=== PATIENT | female | born 2000 | race Hispanic/Latino ===

== ENCOUNTER 2024-10-14 16:39 | Emergency (ER) | payer SELFPAY ==
[~2024-10-14] VITALS: Ht 152.4 cm; Wt 78.9 kg
[2024-10-14] MEDS ORDERED: ondanSETRON 4MG INJ IVP PRN (17:30)
[2024-10-14 17:41] LABS: BASOPHILS # (AUTO) 0.06 K/uL (0.00-0.20); BASOPHILS % (AUTO) 0.4 % (0.0-5.0); EOSINOPHILS # (AUTO) 0.25 K/uL (0.00-0.70); EOSINOPHILS % (AUTO) 1.7 % (0.0-8.0); HEMATOCRIT 38.3 % (36-48); IMMATURE GRANULOCYTE ABSOLUTE 0.05 K/uL (0-1); LYMPHOCYTES # (AUTO) 1.9 K/uL (1.0-4.8); MEAN CORPUSCULAR HGB CONC 31.6 g/dL (32.0-36.0); MEAN CORPUSCULAR VOLUME 79.1 fL (79-99); MONOCYTES # (AUTO) 0.5 K/uL (0.1-1.0); MONOCYTES % (AUTO) 3.6 % (3.0-13.0); NEUTROPHILS # (AUTO) 11.6 K/uL (1.8-7.7); PLATELET COUNT (AUTO) 327 K/uL (130-400); RED BLOOD CELL COUNT(AUTO) 4.84 MIL/uL (4.00-5.50); WHITE BLOOD COUNT (AUTO) 14.3 K/uL (4.8-10.8)
--- NOTE | 2024-10-14 17:50 | ERN ---
General Chief Complaint: Abdominal pain and vomiting Stated Complaint: ABD PAIN, VOMITTING Time Seen by MD: 16:45 Source: patient History of Present Illness Initial Comments The patient is a 24-year-old female presenting to the ED with complaints of ab dominal pain, nausea, vomiting and diarrhea. The symptoms began approximately 2 weeks ago with progressively worsening. Two weeks ago the patient developed abdominal pain nausea vomiting. She went to the ED in [place] where imaging revealed gallstones. And subsided with the pain medication. Subsequently she had a subsequent visit at [facility] in [facility] where she was prescribed famotidine 20 mg with no significant improvement. Symptoms of persistent worsened prompting today's visit. She has severe abdominal pain localized to the right upper quadrant and epigastrium worsens with palpitation. Vomiting is yellowish-green in color with multiple episodes. Diarrhea is watery in consistency. Patient has associated nausea vomiting weakness chills fatigue and reduced appetite. Patient is sexually active in last 1 month. Timing/Duration: 1 week, getting worse Severity: severe Associated Symptoms: loss of appetite, malaise, nausea/vomiting, weakness Allergies: Coded Allergies: No Known Allergies (Unverified Allergy, Unknown, 10/14/24) ROS Dictation CONSTITUTIONAL: NO FEVER, NO DIAPHORESIS, NO MALAISE. Complains of fatigue weakness and chills HEAD/FACE: NO SIGNS OF TRAUMA. EENT: NO EYE PAIN, NO BLURRED VISION, NO TEARING, NO DOUBLE VISION, NO EAR PAIN, NO EAR DISCHARGE, NO NOSE PAIN, NO NASAL CONGESTION, NO THROAT PAIN, NO THROAT SWELLING, NO MOUTH PAIN. RESPIRATORY: NO COUGH, NO ORTHOPNEA, NO SOB, NO STRIDOR, NO WHEEZING. CARDIOVASCULAR: NO CHEST PAIN, NO EDEMA, NO PALPITATIONS, NO SYNCOPE. GASTROINTESTINAL/ABDOMINAL: Abdominal pain right upper quadrant, epigastrium, nausea vomiting which is yellow-green, diarrhea watery and reduced appetite. GENITOURINARY: NO ABNORMAL DISCHARGE, NO DYSURIA, NO FREQUENT URINATION, NO HEMATURIA. NO COMPLAINTS OF PAIN IN THE GENITALS. MUSCULOSKELETAL: NO BACK PAIN, NO GOUT, NO JOINT PAIN, NO JOINT SWELLING, NO MUSCLE PAIN, NO MUSCLE STIFFNESS, NO NECK PAIN. INTEGUMENTARY: CHANGE IN COLOR, NO CHANGE IN HAIR/NAILS, NO DRYNESS, NO LES ION, NO LUMPS, PAINFUL BLISTERS, RASH ON THE LEFT MEDIAL LEG AND WORSENING SWELLING NEUROLOGICAL/PSYCH: NO ANXIETY, NOT DEPRESSED, NO EMOTIONAL PROBLEM, NO HEADACHE, NO NUMBNESS, NO PRE-EXISTING DEFICIT, NO HISTORY OF SEIZURES, NO TREMORS, NO WEAKNESS. HEMATOLOGIC/LYMPHATIC: NOT ANEMIC, NO HISTORY OF BLOOD CLOTS, NO APPARENT BLEEDING, NO BRUISING, GLANDS NOT SWOLLEN. ALL SYSTEMS NEGATIVE, EXCEPT NOTED. Physical Exam Physical Exam Dictation VITAL SIGNS: REVIEWED. GENERAL APPEARANCE: ALERT, ORIENTED X3, OBESE. Appears ill and fatigued HEAD AND FACE: NON-TRAUMATIC. EYES: PERRL, PINK CONJUNCTIVAS, EYELID NO TRAUMA, ANTERIOR CHAMBER CLEAR. EARS: PINNAS INTACT AND NO SIGNS OF TRAUMA OR ERYTHEMA. EAR CANALS CLEAR AND NO DISCHARGE. TMS NO ERYTHEMA. NOSE: NO DISCHARGE, NO BLEEDING. OROPHARYNX: MOUTH NORMAL, TEETH NO CARIES, TONGUE PINK. PHARYNX CLEAR, NO ERYTHEMA. TONSILS NO EXUDATES, NO ABSCESSES NOTED. MUCOUS MEMBRANE MOIST. NECK: SUPPLE, NON-TENDER, NO THYROMEGALY, NO MASSES, NO JVD, NO BRUITS. BREAST: DEFERRED. CHEST: NO TENDERNESS, NO CREPITUS, NO PARADOXICAL MOVEMENT, NO RETRACTIONS. LUNGS: CLEAR, WELL-VENTILATED, SYMMETRIC, NO RALES, NO WHEEZING, NO RHONCHI, NO STRIDOR, GOOD BREATH SOUNDS BILATERALLY. HEART: REGULAR RATE, REGULAR RHYTHM, NO MURMUR, NO GALLOPS. VASCULAR: NO PERIPHERAL EDEMA. ABDOMEN: POSITIVE BOWEL SOUNDS, NONDISTENDED, NO GUARDING, NO MASSES NO HEPATOMEGALY, NO SPLENOMEGALY NO HERNIAS. Right upper quadrant and epigastrium severely tender to palpitation, no distention, bowel sounds present, Gomez sign present RECTAL: DEFERRED. GENITAL: DEFERRED. NEUROLOGICAL: NORMAL SPEECH, GROSS MOTOR FUNCTION INTACT, GROSS SENSORY FUNCTION INTACT. MUSCULOSKELETAL: NECK NONTENDER, FULL RANGE OF MOTION, BACK NONTENDER, FULL RANGE OF MOTION. EXTREMITIES: NONTENDER, FULL RANGE OF MOTION. SKIN: COLOR PINK, DRY, NO TURGOR, NO LACERATIONS, NO ABRASIONS, NO CONTUSIONS, . LYMPHATICS: DEFERRED. Results Laboratory and Microbiology Lab and Micro Result Laboratory Tests Test 10/14/24 17:35 White Blood Count 14.3 K/uL (4.8-10.8) H Red Blood Count 4.84 MIL/uL (4.00-5.50) Hemoglobin 12.1 g/dL (12.0-16.0) Hematocrit 38.3 % (36-48) Mean Corpuscular Volume 79.1 fL (79-99) Mean Corpuscular Hemoglobin 25.0 pg (27.0-33.0) L Mean Corpuscular Hemoglobin Concent 31.6 g/dL (32.0-36.0) L Red Cell Distribution Width 17.0 % (11.0-15.5) H Platelet Count 327 K/uL (130-400) Mean Platelet Volume 11.8 fL (7.5-10.5) H Immature Granulocyte % (Auto) 0.3 % (0-1) Neutrophils (%) (Auto) 81.0 % (40.0-77.0) H Lymphocytes (%) (Auto) 13.0 % (21.0-51.0) L Monocytes (%) (Auto) 3.6 % (3.0-13.0) Eosinophils (%) (Auto) 1.7 % (0.0-8.0) Basophils (%) (Auto) 0.4 % (0.0-5.0) Neutrophils # (Auto) 11.6 K/uL (1.8-7.7) H Lymphocytes # (Auto) 1.9 K/uL (1.0-4.8) Monocytes # (Auto) 0.5 K/uL (0.1-1.0) Eosinophils # (Auto) 0.25 K/uL (0.00-0.70) Basophils # (Auto) 0.06 K/uL (0.00-0.20) Absolute Immature Granulocyte (auto 0.05 K/uL (0-1) Nucleated Red Blood Cells 0.0 % (0.0-0.19) Red Blood Cell Morphology See comments Sodium Level 135 mmol/L (136-145) L Potassium Level 3.6 mmol/L (3.5-5.1) Chloride Level 98 mmol/L (101-111) L Carbon Dioxide Level 29 mmol/L (21-32) Blood Urea Nitrogen 9 mg/dL (7-18) Creatinine 0.7 mg/dL (0.5-1.0) Glomerular Filtration Rate Calc 123 mL/min (>90) Random Glucose 92 mg/dL (70-105) Total Calcium 9.0 mg/dL (8.5-10.1) Total Bilirubin 0.8 mg/dL (0.2-1.0) Aspartate Amino Transf (AST/SGOT) 66 U/L (10-37) H Alanine Aminotransferase (ALT/SGPT) 58 U/L (12-78) Alkaline Phosphatase 154 U/L (50-136) H Total Protein 8.2 g/dL (6.0-8.3) Albumin 4.0 g/dL (3.5-5.0) Lipase 24 U/L (16-77) Serum Test, Qualitative NEGATIVE (NEGATIVE) Labs Reviewed?: Yes EKG/XRAY/US/CT/MRI X-RAY Comment PATIENT: INGA ROMERO MR#: [id number] : 2000 SEX: F AGE: 24 LOCATION: [facility] ORDER 26 STATUS: [facility] REPORT#: [id number] SERVICE [id number] REASON: Abdominal obstruction rule out ORDERING PHYSICIAN: CHARAN SANCHEZ MD PROCEDURE: ABD 1VW - ABD 1VW ABDOMEN SINGLE VIEW INDICATION: Pain COMPARISON: None FINDINGS: Supine view only No abnormal bowel dilation noted. No abnormal calcifications identified. No gross free air detected. IMPRESSION: No evidence for bowel obstruction. DICTATED BY: MAURIZIO ROMANO MD DATE: 10/14/241848 ELECTRONICALLY SIGNED BY: MAURIZIO ROMANO MD DATE: 10/14/24 185 Ultrasound Comment REASON: Acute cholecystitis ORDERING PHYSICIAN: CHARAN SANCHEZ MD PROCEDURE: ABDRUQLTD - US ABDOMINAL RUQ\LTD ULTRASOUND ABDOMEN LIMITED INDICATION: Right upper abdominal pain COMPARISON: None FINDINGS: The liver is normal in size and echogenicity; no focal lesion demonstrated. The common bile duct diameter measures 6.0 mm. Echogenic shadowing stone within the gallbladder lumen without associated pericholecystic fluid. No sonographic Gomez's sign elicited by the ultrasound straw hat brim cutter operator. Wall thickness measures 3.0 mm. Visible portions of the pancreas appear normal. Tail is obscured by overlying bowel gas. The right kidney measures 8.9 x 4.2 x 4.2 cm,and is normal in echogenicity, without evidence for hydronephrosis.No shadowing stones demonstrated. No free fluid demonstrated. IMPRESSION: Cholelithiasis without cholecystitis. DICTATED BY: MAURIZIO ROMANO MD DATE: 10/14/241838 ELECTRONICALLY SIGNED BY: MAURIZIO ROMANO MD DATE: 10/14/241842 [facility] MDM: DIFFERENTIAL DIAGNOSIS: Acute cholecystitis, gallstone pancreatitis, acute hepatitis, peptic ulcer disease, gastroenteritis, choledocholithiasis, ecotopic RATIONALE: TESTS CONSIDERED AND ORDERED SECONDARY TO SHARED DECISION MAKING INCLUDE: LABS, ECG AND RADIOLOGY PREVIOUS OUTSIDE RECORDS REVIEWED: OLD ER VISITS. RISK OF COMPLICATION AND/OR MORBIDITY OR MORTALITY OF PATIENT MANAGEMENT: NONE MEDICATIONS-PER MEDICATION RECONCILIATION NEED FOR HOSPITALIZATION: PATIENT DOES MEET CRITERIA FOR HOSPITALIZATION. NEED FOR EMERGENCY MAJOR/MINOR SURGERY: NO THERE ARE NO SOCIAL CONCERNS WITH THIS PATIENT. PRESCRIPTION DRUG MANAGEMENT PRESCRIPTIONS WILL INCLUDE SYMPTOMATIC CARE PATIENT'S PRIOR EXTERNAL MEDICAL RECORDS FROM OTHER ER VISITS WERE REVIEWED BY ME INDICATED. PRIOR TESTING AND RESULTS FROM PREVIOUS VISITS WERE REVIEWED. PRIOR TESTS WERE TAKEN INTO ACCOUNT WITH MEDICAL DECISION MAKING AND RESOURCE UTILIZATION, INDEPENDENT HISTORIAN/HISTORIANS WERE USED TO OBTAIN COMPLETE MEDICAL HISTORY. I INDEPENDENTLY INTERPRETED THE TEST THAT WERE PERFORMED, RESULTS WERE REVIEWED BY ME AND CONSIDERED FINDINGS ON RADIOLOGY IF ORDERED. MEDICAL MANAGEMENT AND EXAMINATION INTERPRETATION DISCUSSIONS WERE HAD BY ME WITH OTHER QUALIFIED HEALTHCARE PROFESSIONALS INDICATED FOR THE PATIENT'S CARE. Patient has a history of gallstones with worsening symptoms, severe RUQ tenderness and persistent vomiting. Acute cholecystitis is a primary concern given the RUQ tenderness, nausea and prior imaging showing gallstones. Need to rule out gallstone pancreatitis and choledocholithiasis by LFTs lipase and imaging. Given nausea vomiting diarrhea dehydration is a concern so IV fluids are being initiated. Ultrasound abdomen is necessary to assess gallbladder inflammation, wall thickening and ductal dilation. Surgical consultation warranted if findings suggest cholecystitis. LAB FINDINGS SUGGEST AN INFLAMMATORY PROCESS LIKELY ACUTE CHOLECYSTITIS WITH A WBC COUNT OF 14.3 INCREASED SUGGESTIVE OF INFECTION OR INFLAMMATION AND AST A OF 66 HIGH AND ALP OF 144 HIGH SUGGESTIVE OF HEPATOBILIARY INVOLVEMENT, POSSIBLY SECONDARY TO GALLSTONES CAUSING BILIARY OBSTRUCTION OR CHOLESTASIS. GIVEN THE ELEVATED WBC COUNT TRANSAMINITIS AND ALP ELEVATION ACUTE CHOLECYSTITIS REMAINS THE PRIMARY CONCERN, WITH THE POSSIBILITY OF EARLY CHOLANGITIS OR GALLSTONE PANCREATITIS. WAITING FOR HER ABDOMINAL ULTRASOUND RESULTS. ED Course Orders Procedure Category Date Status Time Cbc With Differential LAB 10/14/24 Complete 17:18 Comprehensive LAB 10/14/24 Complete Metabolic Panel 17:18 Lipase LAB 10/14/24 Complete 17:18 Urinalysis Profile LAB 10/14/24 Logged 17:18 ,Urine Test LAB 10/14/24 Logged 17:18 Testing, LAB 10/14/24 Complete Serum Hcg 17:18 Us Abdominal Ruq\Ltd US 10/14/24 Resulted 17:18 Ondansetron 4mg Inj PHA 10/14/24 In Process (Zofran 4mg Inj) 17:30 Abd 1vw RAD 10/14/24 Resulted 17:18 0.9%Nacl 1000ml (Ns PHA 10/14/24 In Process 1000ml) 17:30 Current Medications Medications (Trade) Dose Ordered Sig/Stefanie Route PRN Reason Start Time Stop Time Status Last Admin Dose Admin Ondansetron HCl (zoFRAN 4MG INJ) 4 mg Q6H PRN IVP NAUSEA/VOMITING 10/14/24 17:30 10/17/24 12:00 Sodium Chloride 1,000 ml @ 75 mls/hr [id number] IV 10/14/24 17:30 11/13/24 17:29 Vital Signs Date Time Temp Pulse Resp B/P (MAP) Pulse Ox O2 Delivery O2 Flow Rate FiO2 10/14/24 18:03 98.1 89 20 117/76 99 Room Air 0 DX & DISP Disposition: Discharge Departure Impression: Primary Impression: Biliary colic symptom Additional Impression: Cholelithiasis Condition: Stable Scripts Dicyclomine HCl (Bentyl) 20 Mg Tab 1 TAB PO TID for irritable bowel symptoms for 10 Days, #30 TAB 0 Refills Prov: GIRISH RAIN MD 10/14/24 Levofloxacin (Levofloxacin) 500 Mg Tablet 1 TAB PO DAILY for 10 Days, #10 TAB 0 Refills Prov: GIRISH RAIN MD 10/14/24 Additional Instructions: Patient and the caregiver have been informed of all the diagnostic tests and the imaging conducted during the today's visit to the emergency room and has verbalized understanding of the results I have personally reviewed and interpreted all diagnostic exams performed here in the ER today as well as the vital signs documented by the nursing staff. The patient is now being discharged to home and should follow up with the primary care physician or the specialist as directed by the ER staff. Follow-up with primary care provider in 1 to 2 days. Take medications as directed here in the emergency room. Okay to continue home medications unless otherwise discussed during your visit in the emergency room today. Return to your nearest emergency room if symptoms worsen or if there is no improvement. Call 911 if you need immediate assistance. Take Tylenol or Motrin [id number] as needed and if no contraindications are present. Increase or al hydration. A wound culture or urine culture was ordered here in the emergency room department please follow-up with primary care provider and advise them to get repeat ports from our facility. If you had any Shankar wrap/splints that were applied here, please do not remove them until you see your primary care or specialty. Referrals: SELF,REFERRAL (PCP) ATTESTATION BY PHYSICIAN I have seen and examined the patient. I reviewed the documentation, medical decision making, and treatment plan as noted by the mid-level provider above. I agree with the findings and plan of care. Lori Roberts MD, RAGHAVA R MD Oct 14, 2024 17:50 GIRISH RAIN MD Oct 14, 2024 20:17
[2024-10-14 17:54] LABS: CREATININE 0.7 mg/dL (0.5-1.0); POTASSIUM 3.6 mmol/L (3.5-5.1)
[2024-10-14 17:58] LABS: BILIRUBIN,TOTAL 0.8 mg/dL (0.2-1.0); TOTAL PROTEIN, SERUM 8.2 g/dL (6.0-8.3)
--- NOTE | 2024-10-14 18:43 | HMCIMG ---
ULTRASOUND ABDOMEN LIMITED INDICATION: Right upper abdominal pain COMPARISON: None FINDINGS: The liver is normal in size and echogenicity; no focal lesion demonstrated. The common bile duct diameter measures 6.0 mm. Echogenic shadowing stone within the gallbladder lumen without associated pericholecystic fluid. No sonographic Gomez's sign elicited by the ultrasound ampoule washing machine operator. Wall thickness measures 3.0 mm. Visible portions of the pancreas appear normal. Tail is obscured by overlying bowel gas. The right kidney measures 8.9 x 4.2 x 4.2 cm,and is normal in echogenicity, without evidence for hydronephrosis.No shadowing stones demonstrated. No free fluid demonstrated. IMPRESSION: Cholelithiasis without cholecystitis.
--- NOTE | 2024-10-14 18:55 | HMCIMG ---
ABDOMEN SINGLE VIEW INDICATION: Pain COMPARISON: None FINDINGS: Supine view only No abnormal bowel dilation noted. No abnormal calcifications identified. No gross free air detected. IMPRESSION: No evidence for bowel obstruction.
[2024-10-14] MEDS ORDERED: LEVO-70 PO (20:50)
[2024-10-14] MEDS ORDERED: DICY20TA2 PO (20:50)
[2024-10-14] MEDS: 0.9%NACL 1000ML 1,000 ML IV SCH (21:10)
[2024-10-14 21:23] VITALS: BP 131/79; PULSE 85; RESP 20; TEMP 98.6; O2SAT 99
== END 2024-10-14 21:23 | disposition home or self-care (01) ==
LOC: EDH 16:39
DX: K80.62 Calculus of gallbladder and bile duct with acute cholecystitis without obstruction (principal)
CPT/HCPCS: 36415; 74018; 76705; 80053; 83690; 84703; 85025; 99284